=== PATIENT | female | born 1960 | race Caucasian/White ===

== ENCOUNTER 2017-05-16 11:53 | Emergency (ER) | payer BC ==
[2017-05-16 12:04] VITALS: BP 143/79; PULSE 86; TEMP 98; BMI 21.6
--- NOTE | 2017-05-16 12:22 | PDOC ---
Attending Attestation - Resident Resident Name: [email or web address] - ED Attending Attestation I have performed the following: I have examined & evaluated the patient, The case was reviewed & discussed with the resident, I agree w/resident's findings & plan, Exceptions are as noted - HPI HPI: 05/16/17 12:21 Agree with the resident's HPI as documented in the electronic medical record. - Physicial Exam PE: 05/16/17 12:21 Agree with the resident's physical examination as documented in the electronic medical record. - Medical Decision Making 05/16/17 12:21 57-year-old female with history of nonhealing wound to the outside of her right naris presents to the emergency department with bleeding from the area. Her vital signs are normal and there is no active bleeding at this time after manual digital pressure. 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 We have advised the patient to return to the emergency department if her symptoms persist, worsen, or new symptoms arise.
--- NOTE | 2017-05-16 12:58 | PDOC ---
History of Present Illness - General Chief Complaint: Nasal Bleeding Stated Complaint: NOSE BLEED Time Seen by Provider: 05/16/17 12:08 History Source: Patient Exam Limitations: No Limitations - History of Present Illness Initial Comments: 05/16/17 12:54 The patient is a 57F with no PMH who presents with a bleed on the edge of her nose. It started 1 hour ago and has not stopped. She is not on any blood thinners. Past History - Past Medical History Allergies/Adverse Reactions: Allergies Allergy/AdvReac Type Severity Reaction Status Date / Time No Known Allergies Allergy Verified 05/16/17 11:54 Home Medications: Ambulatory Orders NK [No Known Home Medication] 05/16/17 Other medical history: PPD - Psycho/Social/Smoking Cessation Hx Anxiety: No Suicidal Ideation: No Smoking History: Never smoked Hx Alcohol Use: Yes Drug/Substance Use Hx: No Substance Use Type: Alcohol Review of Systems - Review of Systems Able to Perform ROS?: Yes Is the patient limited Macedonian proficient: No Constitutional: No: Chills, Fever Respiratory: No: Shortness of Breath Cardiac (ROS): No: Chest Pain Integumentary: Yes: Other (nose bleed) *Physical Exam - Vital Signs Last Vital Signs Temp Pulse Resp BP Pulse Ox 98 F 86 18 143/79 100 05/16/17 11:54 05/16/17 11:54 05/16/17 11:54 05/16/17 11:54 05/16/17 11:54 - Physical Exam General Appearance: Yes: Nourished, Appropriately Dressed. No: Apparent Distress HEENT: positive: Other (Turbinates clear w/ no bleeding. 2mm abrasion with bleeding.). negative: Tonsillar Exudate, Tonsillar Erythema, Nasal Congestion Respiratory/Chest: positive: Lungs Clear, Normal Breath Sounds Cardiovascular: positive: Regular Rhythm, Regular Rate, S1, S2 Integumentary: positive: Dry, Warm Medical Decision Making - Medical Decision Making 05/16/17 12:55 Patient is a 57F with no PMH who presents with a bleed at the edge of her nose. The bleeding is not inside the nose. I instructed the patient to press and hold for 20 minutes. She states the bleeding stops and wants to leave. *DC/Admit/Observation/Transfer Diagnosis at time of Disposition: Bleeding - Discharge Dispostion Disposition: HOME Condition at time of disposition: Improved Admit: No - Patient Instructions Printed Discharge Instructions: Allergies (Alternative Therapy) Additional Instructions: Please return to the ER if symptoms persist, worsen, or if new symptoms arise. - Attestations Physician Attestion: 05/16/17 12:57 I, Dr. Jose Regalado, attest that this document has been prepared under my direction and personally reviewed by me in its entirety. I further attest, that it accurately reflects all work, treatment, procedures and medical decision -making performed by me.
== END 2017-05-16 13:01 | disposition home or self-care (01) ==
LOC: FER 11:53
DX: R58 Hemorrhage, not elsewhere classified (principal); X58.XXXA Exposure to other specified factors, initial encounter; Y93.9 Activity, unspecified; Y92.9 Unspecified place or not applicable
CPT/HCPCS: 99281-25